=== PATIENT | female | born 1975 | race African-American/Black ===

== ENCOUNTER 2016-09-03 14:52 | Emergency (ER) | payer OTHER ==
[~2016-09-03] VITALS: Ht 154.9 cm; Wt 52.2 kg
[~2016-09-03 14:52] MED LIST: CEPH-264 PO; ONDA4TAB10 SL
[2016-09-03 15:01] VITALS: BP 135/65
--- NOTE | 2016-09-03 15:21 | PHYS DOC ---
Past Medical History Past Medical History: No Pertinent History Past Surgical History: Tubal ligation Additional Information: 3 CIGS/DAY Alcohol Use: None Drug Use: None Adult General Chief Complaint Chief Complaint: WOUND CHECK [facility] Patient is a 41 year old female presents emergency room today for a wound check of her left thumb. Patient initially incurred a crush injury to her left thumb and she was seen at [facility]. She had a subsequent follow-up visit here 3 days ago. At that time, by description from previous provider, the thumb was red, swollen and hot. There was some concern for possible felon. Patient has been taking cephalexin to address this. She reports that the redness is gone down and the pain is much better, but she continues to have swelling in the left thumb. She denies any fevers or chills. She denies myalgias or arthralgias. Review of Systems Review of Systems Constitutional: Denies fever or chills [] Eyes: Denies change in visual acuity, redness, or eye pain [] HENT: Denies nasal congestion or sore throat [] Respiratory: Denies cough or shortness of breath [] Cardiovascular: No additional information not addressed in HPI [] GI: Denies abdominal pain, nausea, vomiting, bloody stools or diarrhea [] : Denies dysuria or hematuria [] Musculoskeletal: Denies back pain or joint pain [] Integument: Denies rash or skin lesions [] Neurologic: Denies headache, focal weakness or sensory changes [] Endocrine: Denies polyuria or polydipsia [] Allergies Allergies Allergies Coded Allergies Type Severity Reaction Last Updated Verified No Known Drug Allergies 04/11/16 No Physical Exam Physical Exam Constitutional: Well developed, well nourished, no acute distress, non-toxic appearance. [] HENT: Normocephalic, atraumatic, bilateral external ears normal, oropharynx moist, no oral exudates, nose normal. [] Eyes: PERRLA, EOMI, conjunctiva normal, no discharge. [] Neck: Normal range of motion, no tenderness, supple, no stridor. [] Cardiovascular:Heart rate regular rhythm, no murmur [] Lungs & Thorax: Bilateral breath sounds clear to auscultation [] Abdomen: Bowel sounds normal, soft, no tenderness, no masses, no pulsatile masses. [] Skin: Warm, dry, no erythema, no rash. [] Back: No tenderness, no CVA tenderness. [] Extremities: Left thumb with minimal amount of soft tissue swelling. It is primarily on the palmar aspect and not on the dorsum. There is no active purulent drainage, erythema or ascending lymphangitis. negative for KNAVELs. At this time, there is no evidence of a felon or tenosynovitis. Neurologic: Alert and oriented X 3, normal motor function, normal sensory function, no focal deficits noted. [] Psychologic: Affect normal, judgement normal, mood normal. [] Current Patient Data Vital Signs Vital Signs Date Time Temp Pulse Resp B/P Pulse Ox O2 Delivery O2 Flow Rate FiO2 09/03/16 15:01 98.3 78 18 100 Room Air 98.3 EKG EKG [] Radiology/Procedures Radiology/Procedures [] Course & Med Decision Making Course & Med Decision Making Pertinent Labs and Imaging studies reviewed. (See chart for details) [] Dragon Disclaimer Dragon Disclaimer This electronic medical record was generated, in whole or in part, using a voice recognition dictation system. Departure Departure Impression: Primary Impression: Visit for wound check Disposition: HOME, SELF-CARE Condition: GOOD Referrals: JULISSA PHILIP MD (PCP) Patient Instructions: Wound Check Additional Instructions: 1. At this time, there is no evidence of a deep tissue infection call a felon or tenosynovitis. 2. Continue taking the Keflex as prescribed. 3. Wear the splint on your thumb to help prevent it from banging or heating other objects. 4. Review the discharge instructions provided, specifically for reasons to return to the emergency department. 5. Contact your primary care doctor's office Sunday to schedule follow-up appointment for wound check by . KONRAD DONOVAN Sep 03, 2016 15:21
== END 2016-09-03 15:21 | disposition home or self-care (01) ==
LOC: ER 14:52
DX: Z48.01 Encounter for change or removal of surgical wound dressing (principal); R22.32 Localized swelling, mass and lump, left upper limb; F17.210 Nicotine dependence, cigarettes, uncomplicated
CPT/HCPCS: 29130; 99283-25